=== PATIENT | male | born 1965 | race Caucasian/White ===

== ENCOUNTER 2020-08-01 19:51 | Observation (INO) ==
[2020-08-01] MEDS ORDERED: ALBUTEROL SULFATE/IPRATROPIUM 3 ML NEBU IH ONE ×2 (21:09→21:10)
[2020-08-01] MEDS ORDERED: METHYLPREDNISOLONE SOD SUCC/PF 40 MG/ML VIAL IV ONE (21:15)
--- NOTE | 2020-08-01 21:20 | ERNOTE ---
Dyspnea - Date Date of Service: 08/01/20 - General Presenting Symptoms: shortness of breath, wheezing Time Seen by Provider: 08/01/20 21:04 Source: patient - Immun/Allergies/Home Medications Immunizations: IMMUNIZATION HX Immunizations Up to Date Yes History of Influenza Vaccine Yes Hx Pneumococcal Vaccination No Allergies/Adverse Reactions: Allergies No Known Allergies Allergy (Verified 07/12/20 16:51) Home Medications: HOME MEDICATIONS Lisinopril/Hydrochlorothiazide [Lisinopril-Hctz 20-25 mg Tab] 1 ea PO DAILY 07/10/20 [Last Taken Unknown] Rosuvastatin Calcium 5 mg PO DAILY 07/10/20 [Last Taken Unknown] Verapamil HCl [Calan] 120 mg PO DAILY 07/10/20 [Last Taken Unknown] metFORMIN HCL [Metformin HCl] 850 mg PO BID 07/10/20 [Last Taken Unknown] Amox Tr/Potassium Clavulanate [Augmentin 875-125 Tablet] 875 mg PO Q12H #20 tab 07/12/20 [Last Taken Unknown] - History of Present Illness Narrative: 55-year-old male presents complaining of shortness of breath that began yesterday. He complains of a cough and wheezing. He states that he was just in [facility] for acute kidney injury last week. He denies chest pain or back pain. He denies abdominal pain. He denies fever or chills. He denies vomiting or diarrhea. He denies headache. He denies leg pain. He denies loss of taste or smell. He does not recall if he had a Covid test at [place]. Severity: moderate Frequency of episodes: Reports: occassional episodes Review of Systems - Review of Systems Constitutional: Absent: fever, chills ENT: Present: no symptoms reported Respiratory: Present: shortness of breath, cough, wheezing Cardiology: Present: no symptoms reported. Absent: chest pain, palpitations Gastrointestinal/Abdominal: Present: no symptoms reported Musculoskeletal: Present: no symptoms reported Neurological: Present: no symptoms reported. Absent: seizure, weakness, numbness All Other Systems: All systems neg except as marked Medical History (Last Reviewed 08/01/20 @ 21:18 by Tori Alves DO) Compound fracture Diabetes Hypercholesterolemia Hypertension Vertigo Surgical History: Surgical History (Last Reviewed 08/01/20 @ 21:18 by Tori Alves DO) Amputation of right great toe Hx of tonsillectomy Family History: Family History (Last Reviewed 08/01/20 @ 21:18 by Tori Alves DO) Family history non-contributory Social History: (Last Reviewed 08/01/20 @ 21:18 by Tori Alves DO) Tobacco: Smoking Status: Current every day smoker tobacco type: cigarettes Smoking cigarettes per day: 20 Alcohol: alcohol intake: never Substance Use: substance use type: does not use Physical Exam - Physical Exam General Appearance: Present: alert, mild distress Ears, Nose, Throat: Present: normal ENT inspection Neck: Present: normal inspection Respiratory: Present: decreased breath sounds, wheezing Cardiovascular/Chest: Present: regular rate, rhythm Gastrointestinal/Abdominal: Present: nontender, soft Neurological Exam: Present: alert, oriented, normal mood/affect, no motor/sensory deficits Skin Exam: Present: warm/dry Progress - Results and Orders Patient's Lab Results:: I have reviewed the patient's lab results. - Vital Signs Patient's Vital Signs:: I have reviewed the patient's vital signs. Vital Signs: Vital Signs 08/01/20 20:05 08/01/20 21:12 Temperature 37.6 C Pulse Rate 119 H 115 H Respiratory Rate 22 H 32 H Blood Pressure 194/112 H O2 Sat by Pulse Oximetry 91 L 92 L - EKG EKG #1 EKG: NSR EKG read: Interp. by me EKG Comments: EKG showed a sinus rhythm rate of 117. No acute ST or T wave changes. - X-Ray X-Ray #1 X-Ray: chest Interpretation: Interp. by me X-ray Comments: Portable chest x-ray showed no acute infiltrates. - Progress/Reassessment Chief Complaint: Dyspnea Progress:: Improved Progress Note-Subjective: 08/02/20 01:29 Patient arrived with complaints of difficulty breathing. He had did have diminished breath sounds with scattered rhonchi and expiratory wheezes upon arrival. He was given a DuoNeb nebulizer treatment and IV Solu-Medrol. I was thinking that he had COVID-19. Covid came back negative. He did have an elevated white blood cell count and an elevated D-dimer. CTA of the chest was ordered which was negative for pulmonary embolism and did not show any consolidations. He had a BNP of over 2000. No pulmonary edema was seen on the CTA. He had hypertensive urgency with a blood pressure of 205/131. He was given labetalol 20 mg IV push which brought his blood pressure down nicely but it is now creeping back up, it is now 194/114. I will order another dose of labetalol. EKG showed no acute changes. His troponin was negative. He is requiring oxygen to maintain a pulse ox in the mid 90s. He was 86% on room air prior to oxygen. Patient tells me that he has not been taking his medications for the last couple days. He was recently in [facility] for "kidney problems". I saw his discharge paperwork that he brought with him, this is set acute kidney injury. Patient states that he had no shortness of breath at that time. Patient states that he could not get a ride to [place]. I discussed this case with Dr. Saleh. He will admit the patient for observation. Departure Clinical Impression: Hypertensive urgency, Noncompliance, Hypoxia Dyspnea Qualifiers: Dyspnea type: shortness of breath Qualified Code(s): R06.02 - Shortness of breath - Departure Disposition: Short Term Hospital Inpatient Condition: Fair
[2020-08-01 21:34] LABS: Hematocrit 40.8 % (42.0-52.0); Hemoglobin 13.1 gm/dL (13.5-18.0); Mean Cell Volume 85.5 fl (78-100); Mean Corpuscular Hemoglobin 27.5 pg (27-31); Mean Corpuscular Hgb Conc 32.1 g/dl (32-36); Mean Platelet Volume 8.9 fl (8-11.3); Platelet Count 251 K/mm3 (150-450); Red Blood Count 4.77 M/mm3 (4.7-6.0); Red Cell Distribution Width 12.7 % (11.5-14.0); White Blood Count 16.7 K/mm3 (4.0-10.5)
[2020-08-01 21:40] LABS: Total Cells Counted 100
[2020-08-01 21:54] LABS: ALT 26 U/L (19-67); AST 21 U/L (0-48); Albumin * 2.4 gm/dl (3.4-5.0); Alkaline Phosphatase * 72 U/L (50-170); Anion Gap 13.6 mmol/L (6.8-13.8); BNP * 2150 pg/mL (5-140); BUN/Creatinine Ratio 16.7 (9.0-21.6); Bilirubin, Total 0.4 mg/dL (0.0-1.1); Blood Urea Nitrogen 24 mg/dL (6-23); Ca. Corrected For Albumin 9.5 mg/dL (8.4-10.2); Calcium * 8.5 mg/dL (7.9-10.9); Carbon Dioxide 24.7 mmol/L (24-32.6); Chloride 105 mmol/L (97-106); Glucose * 134 mg/dL (70-110); Potassium 5.3 mmol/L (3.4-4.6); Sodium 138 mmol/L (132-142); Total Protein 6.4 gm/dL (6.2-8.2)
[2020-08-01 21:55] LABS: Troponin I Less than 0.017 ng/mL (0.00-0.10)
[2020-08-01 22:05] LABS: Atypical (Reactive) Lymph 4 % (0-2); Band 7 % (0-2.0); Lymphocyte 10 % (20-51); Monocyte 8 % (0-9); Neutrophil 71 % (42-75); Neutrophil # 11.9 K/mm3 (1.3-6.0)
[2020-08-01 22:07] LABS: Platelet Estimate Normal (NORMAL); Polychromasia Trace
[2020-08-01] MEDS ORDERED: LABETALOL HCL 5 MG/ML VIAL IV ONE (23:51)
[2020-08-02] MEDS ORDERED: LABETALOL HCL 5 MG/ML VIAL IV ONE (01:35)
[2020-08-02] MEDS: ALBUTEROL SULFATE/IPRATROPIUM 3 ML NEBU IH PRN ×2 (02:40→19:50)
[2020-08-02] MEDS ORDERED: FUROSEMIDE 10 MG/ML VIAL IV ONE (09:17)
[2020-08-02] MEDS: LISINOPRIL 10 MG TABLET PO SCH (10:02)
[2020-08-02] MEDS: VERAPAMIL HCL 120 MG TABLET PO SCH (10:02)
--- NOTE | 2020-08-02 10:56 | HP ---
Chief Complaint - Chief Complaint Date of Service: 08/02/20 Time of Service: 09:00 Chief Complaint: Shortness of breath History of Present Illness: Mike is a 55 yo male with history of DMII, HTN, and HLP. He recently had acute kidney injury and was treated with IV fluids at [facility]. He was discharged from there about 1 week ago. He reports that over the last few days he has been short of breath and having worse lower extremity edema. He denies chest pain, fever, chills, nausea, or vomiting. He denies heart or lung problems recently, although he does admit to using an inhaler as a child for asthma and reports that he has used his friends albuterol inhaler for shortness of breath at times in the last year. He also admits to an 80pack year history of smoking with about 40 years of smoking on average of 2packs per day. Notable in the ER. WBC elevated at 16.7k and chest xray shows evidence of pneumonia in left lung base. BNP elevated at 2000. Medical History (Last Reviewed 08/02/20 @ 02:33 by Diana Sharp RN) Amputation of left great toe Compound fracture Diabetes Hypercholesterolemia Hypertension Vertigo Surgical History: Surgical History (Last Reviewed 08/02/20 @ 02:33 by Diana Sharp RN) History of ankle surgery Hx of tonsillectomy Family History: Family History (Last Reviewed 08/02/20 @ 02:33 by Diana Sharp RN) Other Family history non-contributory Social History: (Last Reviewed 08/02/20 @ 02:33 by Diana Sharp RN) Tobacco: Smoking Status: Current every day smoker tobacco type: cigarettes Smoking cigarettes per day: 20 Alcohol: alcohol intake: never Substance Use: substance use type: does not use Review Of Systems (GEN) - Review of Systems Generalized/Overall Review: Absent: Weakness, Chills, Fever EENTM: Present: No Symptoms Reported Cardiac: Present: Edema. Absent: Chest Pain, Palpitations, Syncope Abdominal: Absent: Nausea, Vomiting Genitourinary: Absent: Burning, Frequency Skin: Absent: Lesions, Rash Immunizations: IMMUNIZATION HX Immunizations Up to Date Yes History of Influenza Vaccine Yes Hx Pneumococcal Vaccination No Allergies/Adverse Reactions: Allergies Allergy/AdvReac Type Severity Reaction Status Date / Time No Known Allergies Allergy Verified 07/12/20 16:51 Home Medications: HOME MEDICATIONS Rosuvastatin Calcium 5 mg PO DAILY 07/10/20 [Last Taken Unknown] Verapamil HCl [Calan] 120 mg PO DAILY 07/10/20 [Last Taken Unknown] metFORMIN HCL [Metformin HCl] 850 mg PO BID 07/10/20 [Last Taken Unknown] Amox Tr/Potassium Clavulanate [Augmentin 875-125 Tablet] 875 mg PO Q12H #20 tab 07/12/20 [Last Taken Unknown] Lisinopril [Prinivil] 10 mg PO DAILY 08/02/20 [Last Taken Unknown] Exam - Exam Vital Signs: Vital Signs - Last Taken Temp 37 C 08/02/20 01:58 Pulse 87 08/02/20 10:02 Resp 30 H 08/02/20 02:50 BP 152/93 H 08/02/20 10:02 Pulse Ox 94 08/02/20 02:40 Constitutional: Present: Alert, Oriented x3, Cooperative ENT Exam: Present: hearing grossly normal Eye Exam: bilateral eye: normal inspection Respiratory: Present: wheezing Cardiovascular/Chest: Present: regular rate, rhythm, edema - 2+ Peripheral Pulses: radial (R): 2+, radial (L): 2+ Abdomen: Present: Normal bowel sounds, soft, nontender, nondistended Extremity: Present: lower extremity edema - 2+ Skin Exam: Present: normal color, warm/dry, no cyanosis Diagnostic Studies: Abnormal Lab Results 08/01/20 08/01/20 08/01/20 Range/Units 21:25 21:25 21:25 WBC 16.7 H (4.0-10.5) K/mm3 Hgb 13.1 L (13.5-18.0) gm/dL Hct 40.8 L (42.0-52.0) % Band Neuts % (Manual) 7 H (0-2.0) % Lymphocytes % (Manual) 10 L (20-51) % Neutrophils # (Manual) 11.9 H (1.3-6.0) K/mm3 Monocytes # (Manual) 1.3 H (0.0-1.0) k/mm3 Atypic/Reactive Lymphs 4 H (0-2) % D-Dimer 1.57 H (0.19-0.49) ugFEU/mL Potassium 5.3 H (3.4-4.6) mmol/L BUN 24 H (6-23) mg/dL Creatinine 1.44 H (0.4-1.4) mg/dL Est GFR (Non-Af Amer) 54 L (60-130) mL/min Random Glucose 134 H (70-110) mg/dL B-Natriuretic Peptide 2150 H (5-140) pg/mL Albumin 2.4 L (3.4-5.0) gm/dl Laboratory Results WBC 16.7 K/mm3 (4.0-10.5) H 08/01/20 21:25 RBC 4.77 M/mm3 (4.7-6.0) 08/01/20 21:25 Hgb 13.1 gm/dL (13.5-18.0) L 08/01/20 21:25 Hct 40.8 % (42.0-52.0) L 08/01/20 21:25 MCV 85.5 fl (78-100) 08/01/20 21: MCH 27.5 pg (27-31) 08/01/20 21: MCHC 32.1 g/dl (32-36) 08/01/20 21:25 RDW 12.7 % (11.5-14.0) 08/01/20 21:25 Plt Count 251 K/mm3 (150-450) 08/01/20 21:25 MPV 8.9 fl (8-11.3) 08/01/20 21:25 Neutrophils % (Manual) 71 % (42-75) 08/01/20 21:25 Band Neuts % (Manual) 7 % (0-2.0) H 08/01/20 21:25 Lymphocytes % (Manual) 10 % (20-51) L 08/01/20 21:25 Monocytes % (Manual) 8 % (0-9) 08/01/20 21:25 Neutrophils # (Manual) 11.9 K/mm3 (1.3-6.0) H 08/01/20 21:25 Lymphocytes # (Manual) 1.7 k/mm3 (1.5-3.5) 08/01/20 21:25 Monocytes # (Manual) 1.3 k/mm3 (0.0-1.0) H 08/01/20 21:25 Atypic/Reactive Lymphs 4 % (0-2) H 08/01/20 21:25 Platelet Estimate Normal (NORMAL) 08/01/20 21:25 Polychromasia Trace 08/01/20 21:25 D-Dimer 1.57 ugFEU/mL (0.19-0.49) H 08/01/20 21:25 Sodium 138 mmol/L (132-142) 08/01/20 21:25 Plasma Sodium 139 mmol/L (130-142) 08/01/20 21:25 Potassium 5.3 mmol/L (3.4-4.6) H 08/01/20 21:25 Chloride 105 mmol/L (97-106) 08/01/20:25 Carbon Dioxide 24.7 mmol/L (24-32.6) 08/01/20: Anion Gap 13.6 mmol/L (6.8-13.8) 08/01/20:25 BUN 24 mg/dL (6-23) H 08/01/20: Creatinine 1.44 mg/dL (0.4-1.4) H 08/01/20:25 Est GFR (Non-Af Amer) 54 mL/min (60-130) L 08/01/20: BUN/Creatinine Ratio 16.7 (9.0-21.6) 08/01/20: Random Glucose 134 mg/dL (70-110) H 08/01/20:25 Lactic Acid, Venous 0.9 mmol/L (0.4-2.0) 08/01/20: Calcium 8.5 mg/dL (7.9-10.9) 08/01/20: Calcium Adj for Albumin 9.5 mg/dL (8.4-10.2) 08/01/20:25 Total Bilirubin 0.4 mg/dL (0.0-1.1) 08/01/20:25 AST 21 U/L (0-48) 08/01/20: ALT 26 U/L (19-67) 08/01/20:25 Alkaline Phosphatase 72 U/L (50-170) 08/01/20:25 Troponin I Less than 0.017 ng/mL (0.00-0.10) 08/01/20: B-Natriuretic Peptide 2150 pg/mL (5-140) H 08/01/20 21:25 Total Protein 6.4 gm/dL (6.2-8.2) 08/01/20 21:25 Albumin 2.4 gm/dl (3.4-5.0) L 08/01/20 21:25 SARS-CoV-2 (PCR) Not detected (NotDetected) 08/01/20 21:22 Assessment/Plan - Narrative Narrative: Mike is a 55 yo male with acute respiratory failure with hypoxia secondary to pneumonia. Will treat with levaquin and wean from oxygen as able. Suspect possible fluid overload from fluid given last week for acute kidney injury. Will give IV lasix. Will admit to observation and plan to discharge tomorrow if weaned off oxygen and shortness of breath is improved. - Assessment/Plan (1) Acute respiratory failure Problem: Acute (2) Pneumonia Problem: Acute
[2020-08-02] MEDS: LEVOFLOXACIN 750 MG TABLET PO SCH (12:11)
[2020-08-02] MEDS ORDERED: NICOTINE 21 MG PATC TD SCH (12:15)
[2020-08-02] MEDS ORDERED: ACETAMINOPHEN 500 MG TABLET PO PRN (15:42)
[2020-08-02] MEDS ORDERED: BENZONATATE 100 MG CAPSULE PO PRN (18:42)
[2020-08-02] MEDS ORDERED: ROSUVASTATIN CALCIUM 5 MG TABLET PO SCH (21:00)
[2020-08-03 06:56] LABS: Hematocrit 39.8 % (42.0-52.0); Hemoglobin 12.5 gm/dL (13.5-18.0); Mean Cell Volume 86.9 fl (78-100); Mean Corpuscular Hemoglobin 27.3 pg (27-31); Mean Corpuscular Hgb Conc 31.4 g/dl (32-36); Neutrophil # 6.6 K/mm3 (1.3-6.0); Neutrophil % 61.5 % (42-75.0); Platelet Count 231 K/mm3 (150-450); Red Blood Count 4.58 M/mm3 (4.7-6.0); Red Cell Distribution Width 13.1 % (11.5-14.0); White Blood Count 10.7 K/mm3 (4.0-10.5)
[2020-08-03 07:13] LABS: Anion Gap 10.5 mmol/L (6.8-13.8); BUN/Creatinine Ratio 25.8 (9.0-21.6); Bilirubin, Total 0.2 mg/dL (0.0-1.1); Ca. Corrected For Albumin 9.5 mg/dL (8.4-10.2); Calcium * 8.2 mg/dL (7.9-10.9); Potassium 4.5 mmol/L (3.4-4.6); Total Protein 5.8 gm/dL (6.2-8.2)
[2020-08-03] MEDS: ALBUTEROL SULFATE/IPRATROPIUM 3 ML NEBU IH PRN (08:40)
[2020-08-03] MEDS: VERAPAMIL HCL 120 MG TABLET PO SCH (09:16)
[2020-08-03] MEDS: LEVOFLOXACIN 750 MG TABLET PO SCH (09:16)
[2020-08-03] MEDS: LISINOPRIL 10 MG TABLET PO SCH (09:16)
--- NOTE | 2020-08-03 10:08 | DS ---
(1) Acute respiratory failure Problem: Resolved (2) Dyspnea Problem: Resolved Qualifiers: Dyspnea type: shortness of breath Qualified Code(s): R06.02 - Shortness of breath (3) Hypertensive urgency Problem: Resolved (4) Hypoxia Problem: Resolved (5) Pneumonia Problem: Acute (6) Chronic renal failure, stage 3 (moderate) Problem: Acute Date of Discharge:: 08/03/20 Hospital Course: Mike Murphy is a 55 yo male with past medical history of DMII, HTN, and HLP. He recently had acute kidney injury and was treated with IV fluids at [facility]. He was discharged from there about 1 week ago. He reports that over the last few days he has been short of breath and having worse lower extremity edema. He denies chest pain, fever, chills, nausea, or vomiting. He denies heart or lung problems recently, although he does admit to using an inhaler as a child for asthma and reports that he has used his friends albuterol inhaler for shortness of breath at times in the last year. He also admits to an 80pack year history of smoking with about 40 years of smoking on average of 2packs per day. Notable in the ER. WBC elevated at 16.7k and chest xray shows evidence of pneumonia in left lung base. BNP elevated at 2000. He was admitted and was given IV Lasix and started on IV Levaquin. He is feeling much better this morning and is saturating 94% on RA. We will discharge him on PO Levaquin. He will follow up with his PCP next week. Procedures Performed: none Results and Findings: Pending Mircobiology Results 08/01/20 22:40 Blood Blood Culture - Preliminary NO GROWTH 24 HOURS 08/01/20 21:25 Blood Blood Culture - Preliminary NO GROWTH 24 HOURS Lab Pending Results 08/01/20 21:22: SARS-CoV-2 (PCR) Not detected 08/01/20 21:25: WBC 16.7 H, RBC 4.77, Hgb 13.1 L, Hct 40.8 L, MCV 85.5, MCH 27.5, MCHC 32.1, RDW 12.7, Plt Count 251, MPV 8.9, Neutrophils % (Manual) 71, Band Neuts % (Manual) 7 H, Lymphocytes % (Manual) 10 L, Monocytes % (Manual) 8, Neutrophils # (Manual) 11.9 H, Lymphocytes # (Manual) 1.7, Monocytes # (Manual) 1.3 H, Atypic/Reactive Lymphs 4 H, Platelet Estimate Normal, Polychromasia Trace 08/01/20 21:25: Sodium 138, Plasma Sodium 139, Potassium 5.3 H, Chloride 105, Carbon Dioxide 24.7, Anion Gap 13.6, BUN 24 H, Creatinine 1.44 H, Est GFR (Non- Af Amer) 54 L, BUN/Creatinine Ratio 16.7, Random Glucose 134 H, Calcium 8.5, Calcium Adj for Albumin 9.5, Total Bilirubin 0.4, AST 21, ALT 26, Alkaline Phosphatase 72, Troponin I Less than 0.017, B-Natriuretic Peptide 2150 H, Total Protein 6.4, Albumin 2.4 L 08/01/20 21:25: D-Dimer 1.57 H 08/01/20 21:25: Lactic Acid, Venous 0.9 08/03/20 06:40: WBC 10.7 H D, RBC 4.58 L, Hgb 12.5 L, Hct 39.8 L, MCV 86.9, MCH 27.3, MCHC 31.4 L, RDW 13.1, Plt Count 231, MPV 9.0, Immature Gran % (Auto) 0.80 H, Immature Gran # (Auto) 0.09 H, Neutrophils % 61.5, Lymphocytes % 23.4, Monocytes % 12.4 H, Eosinophils % 1.6, Basophils % 0.3, Nucleated RBC % 0.0, N eutrophils # 6.6 H, Lymphocytes # 2.51, Monocytes # 1.3 H, Eosinophils # 0.2, Absolute Basophils 0.0 08/03/20 06:40: Sodium 143 H, Plasma Sodium 144 H, Potassium 4.5, Chloride 109 H, Carbon Dioxide 28.0, Anion Gap 10.5, BUN 41 H D, Creatinine 1.59 H, Est GFR (Non-Af Amer) 48 L, BUN/Creatinine Ratio 25.8 H, Random Glucose 137 H, Calcium 8.2, Calcium Adj for Albumin 9.5, Total Bilirubin 0.2, AST 22, ALT 26, Alkaline Phosphatase 73, Total Protein 5.8 L, Albumin 2.0 L Discharge Location: Home Disposition: Home self-care Condition: Stable Discharge Activity: Activity as tolerated Discharge Diet: Consistent carbs, Low salt Additional Patient Instructions (free text): Follow up with his PCP in [place] next week. Prescriptions (Any new or edited meds): Albuterol Sulfate/Ipratropium [Duoneb 2.5-0.5MG/3ML Soln] 3 ml IH QID PRN #7 nebu PRN Reason: shortness of breath Transmission Status: Pending to [place], [place] Levofloxacin [Levaquin] 750 mg PO DAILY #7 tab Transmission Status: Pending to [place], [place] Benzonatate [Tessalon] 200 mg PO QID PRN #20 cap PRN Reason: Cough Transmission Status: Pending to [place], [place] Acetaminophen [Tylenol] 1,000 mg PO Q8H PRN #20 tab PRN Reason: Mild Pain (Pain Scale 1-3) Transmission Status: Pending to [place], [place] Complete Home Medications List: Complete Home Medication List: Rosuvastatin Calcium 5 mg PO DAILY 07/10/20 Verapamil HCl [Calan] 120 mg PO DAILY 07/10/20 metFORMIN HCL [Metformin HCl] 850 mg PO BID 07/10/20 Lisinopril [Prinivil] 10 mg PO DAILY 08/02/20 Acetaminophen [Tylenol] 1,000 mg PO Q8H PRN #20 tab 08/03/20 Albuterol Sulfate/Ipratropium [Duoneb 2.5-0.5MG/3ML Soln] 3 ml IH QID PRN #7 nebu 08/03/20 Benzonatate [Tessalon] 200 mg PO QID PRN #20 cap 08/03/20 Levofloxacin [Levaquin] 750 mg PO DAILY #7 tab 08/03/20
[2020-08-03 12:11] VITALS: BP 154/94
== END 2020-08-03 12:05 | disposition home or self-care (01) ==
LOC: MS 19:51 → ER 19:51 → MS 08-02 01:46
PROVIDERS: ADMIT Family Medicine; ATTEND Family Medicine